=== PATIENT | male | born 1995 | race Caucasian/White ===

== ENCOUNTER 2022-12-27 09:13 | Emergency (ER) | payer OTHER, SELFPAY ==
--- NOTE | 2022-12-27 09:18 | XR_ITS ---
WS: [id number] Exam: XR foot RT min 3V* [id number] Date/Time of Exam: 12/27/2022 9:50 AM Reason For Exam: injury Findings: The foot was examined in multiple views and reveals no fractures or displacements of bone. No bony a nomalies are noted. The bony elements are in adequate alignment. The joint spaces are smooth and eq uidistant. XR/XR foot RT min 3V* [id number] IMPRESSION: Negative right foot.
[2022-12-27 09:32] VITALS: BP 124/84; PULSE 98; RESP 16; TEMP 36.9; O2SAT 99; BMI 25.3
--- NOTE | 2022-12-27 09:45 | XR_ITS ---
WS: [id number] Exam: XR ankle RT min 3V* [id number] Date/Time of Exam: 12/27/2022 9:50 AM Reason For Exam: crush type injury to ankle Findings: Multiple views of the ankle reveal no fracture or displacements of bone. No soft tissue swelling is present. There are no periosteal reactions noted. The talus and calcaneus are in adequate position. The joint space is smooth and equidistant. XR/XR ankle RT min 3V* [id number] IMPRESSION: Negative right ankle.
--- NOTE | 2022-12-27 09:55 | ED_ITS ---
HPI - Extremity Problem General: Chief complaint: Extremity Injury, Lower Stated complaint: Right Foot injury, vehicle motor fell on it Time Seen by Provider: 12/27/22 09:21 History of Present Illness: Patient is a 27-year-old male comes to the ED with right foot and ankle injury. Injury occurred just prior to arrival. Patient says he was working on a car motor and it was up on a rack. The motor fell and patient tried to catch it but it hit patient's right foot and right ankle. He rates his pain currently a 9 out of 10 and is unable to bear weight on right foot. Denies any other injuries. Patient has not taken any [id number] pain medications before coming to the ED. Associated symptoms: Deny chest pain, fever(s) or rash Review of Systems Const: Denies: fever(s), chills or fatigue Eyes: Denies: change in vision or eye discomfort ENMT: Denies: throat pain, odynophagia, nasal discharge or nasal congestion Card: Denies: chest pain, palpitations, edema, swelling of feet/ankles, dyspnea on exertion or orthopnea Resp: Denies: dyspnea, productive cough or non-productive cough GI: Denies: abdominal pain, nausea, vomiting, diarrhea, constipation or hematochezia : Denies: flank pain, difficulty urinating, dysuria or hematuria Musc: Reports: extremity pain (Right ankle and right foot), extremity swelling (Right ankle and right foot) and limited range of motion (Right ankle); Denies: neck pain or back pain Skin/Breast: Denies: rash or new lesions Neuro: Denies: headache(s), numbness in extremities or weakness in extremities Physical Exam Const: COMMON NORMALS: patient oriented x3 HENMT: COMMON NORMALS: normocephalic HEAD & SCALP: normocephalic MOUTH: Normal oral and palatal mucosa present THROAT: posterior oropharynx normal and uvula midline Neck/C-Spine: COMMON NORMALS: supple GENERAL: Yes normal visual inspection Resp: COMMON NORMALS: normal respiratory effort, No retractions, No use of accessory muscles and clear to auscultation bilaterally AUSCULTATION: clear to auscultation bilaterally Cardio: COMMON NORMALS: regular rate, regular rhythm, S1 normal heart sound present, S2 normal heart sound present, No gallops present (Cardio), No clicks present (Cardio), No murmurs present (Cardio) and Peripheral pulses 2+ throughout RATE: regular rate RHYTHM: regular rhythm HEART SOUNDS: S1 normal heart sound present and S2 normal heart sound present PERIPHERAL PULSES: Peripheral pulses 2+ throughout GI: COMMON NORMALS: Normal to inspection, nondistended, normoactive bowel sounds present, Soft to palpation, non-tender and no masses PALPATION: Yes Soft to palpation : COMMON NORMALS: Yes no CVA tenderness BLADDER/KIDNEY EXAM: Yes no CVA tenderness Back/Pelvis: COMMON NORMALS: no CVA tenderness Extremity: NARRATIVE EXTREMITY EXAM: Right ankle and right foot?ecchymosis, swelling and tenderness over lateral malleolus and lateral aspect of heel. Neurovascular intact distally. Neuro: COMMON NORMALS: patient oriented x3 GAIT: Yes Normal gait present Skin: GENERAL SKIN EXAM: dry skin Course Vital Signs: Vital signs: Vital Signs Temperature 98.4 F 12/27/22 09:32 Pulse Rate 78 12/27/22 10:23 Respiratory Rate 16 12/27/22 09:32 Blood Pressure 130/77 12/27/22 10:23 Pulse Oximetry 97 12/27/22 10:23 Oxygen Delivery Me thod Room Air 12/27/22 09:32 MDM - Extremity (Nontraumatic) Medical Decision Making Patient is a 27-year-old male comes to the ED with right foot and ankle injury. Injury occurred just prior to arrival. Patient says he was working on a car motor and it was up on a rack. The motor fell and patient tried to catch it but it hit patient's right foot and right ankle. He rates his pain currently a 9 out of 10 and is unable to bear weight on right foot. Denies any other injuries. Patient has not taken any aksd-sxa-lgrllrl pain medications before coming to the ED. vitals are stable. Right ankle and right foot?ecchymosis, swelling and tenderness over lateral malleolus and lateral aspect of heel. Neurovascular intact distally. X-ray of right ankle and right foot showed no acute fractures or findings. Patient was diagnosed with a contusion of right foot and was stable for discharge home. He sent home with crutches and told to limit weightbearing for the next 2 to 3 days and slowly advance weightbearing as tolerated. Rest, ice and elevate right foot. Take [id number] ibuprofen or Tylenol for pain. Follow-up with PCP within the next week for reevaluation. Patient understood and agreed with plan. Lab Data Radiology Impressions Foot X-Ray 12/27/22 09:18 IMPRESSION: Negative right foot. Ankle X-Ray 12/27/22 09:45 IMPRESSION: Negative right ankle. Discharge Plan Discharge Patient Disposition: Home Clinical Impression: Contusion of foot or heel Qualifiers: Encounter type: initial encounter Laterality: right Qualified Code(s): S90.31XA - Contusion of right foot, initial encounter Condition: Stable Prescriptions: No Action amoxicillin 875 mg tablet 875 mg PO BID Rx Instructions: for 10 days (rx filled 12/18/22) Discharge Orders: Discharge ED (Routine); Ordered 12/27/22 Ordered By: Israel Fernandez Referrals: Pb Mccullough MD [Primary Care Provider] - Discharge Diet: Regular Discharge Activity: Limit activity as instructed and Use walker/crutches as instructed Activity Restrictions/Additional Instructions: Follow-up with medical provider as directed in the next 5 to 7 days for reevaluation. Use crutches and limit weightbearing for the next 2 to 3 days and slowly advance weightbearing as tolerated. Rest, ice and elevate right foot and ankle. Take spnq-gxs-jcuigek ibuprofen or Tylenol to help with pain. Return to the ER or your medical provider if condition worsens. Please read and understand discharge instructions. Thank you for choosing [facility] for your healthcare needs today. Please realize this is an emergency room and that we are providing you with a medical screening exam and this may not be complete and all inclusive of all the testing and or work up that you may need to determine your ailment or severity of your illness. It is very important that you follow up as instructed or that you return to the Emergency Department should you have concerns or if your condition changes or worsens in any way. Stand Alone Forms: Work/School Release Coding Level of Care Code ED [employer] for [employer]
[2022-12-27] MEDS: ketorolac 60 mg/2 mL INJ IM (10:08)
[2022-12-27 10:23] VITALS: BP 130/77; PULSE 78; O2SAT 97
== END 2022-12-27 10:24 | disposition home or self-care (01) ==
PROVIDERS: Emergency Provider Physician Assistant; PCP Family Medicine
DX: S90.31XA Contusion of right foot, initial encounter (principal); W20.8XXA Other cause of strike by thrown, projected or falling object, initial encounter
CPT/HCPCS: 73610; 73630; 96372; 99284; J1885

== ENCOUNTER → 2023-05-05 09:56 | Outpatient (BNVA) | payer OTHER, SELFPAY | PROVIDERS: PCP Family Medicine; Visit Provider Nurse Practitioner Family | DX: M25.572 Pain in left ankle and joints of left foot (principal); L08.9 Local infection of the skin and subcutaneous tissue, unspecified | CPT/HCPCS: 73610; 87070; 87075; 87077; 87184; 87205 ==